=== PATIENT | male | born 1985 | race African-American/Black ===

== ENCOUNTER 2017-11-12 17:11 | Emergency (ER) | payer SELFPAY ==
[~2017-11-12] VITALS: Ht 182.9 cm; Wt 79.4 kg
[2017-11-12 17:20] VITALS: BP 121/75
--- NOTE | 2017-11-12 17:34 | PHYS DOC ---
Adult General Chief Complaint Chief Complaint: INSECT BITE HPI HPI 31-year-old male presents to ER with complaints of being stung by a wasp around 1 PM today. Patient states he was stung on the top of the head and then brushed the wasp away and was stung on the lt eye lid. Pt reports he did drink a tsp of children's benedryl at home as he had some arm itching after wasp sting. He denies having any shortness of air, wheezing, throat pain or swelling, or difficulty swallowing. Patient reports he went to [facility] and because of his left eyelid being so swollen was sent to the ER for further evaluation. Patient denies any vision changes or blurred vision. Patient reports he does have difficulty opening his left eye due to swelling to the eyelid. Patient denies eye pain or headache. Pt reports following Benadryl he no longer has bilateral arm itching is that symptom has subsided. Review of Systems Review of Systems Constitutional: Denies fever or chills [] Eyes: Denies change in visual acuity, redness, or eye pain [] HENT: Denies nasal congestion or sore throat [] Respiratory: Denies cough or shortness of breath [] Cardiovascular: No additional information not addressed in HPI [] GI: Denies abdominal pain, nausea, vomiting, bloody stools or diarrhea [] : Denies dysuria or hematuria [] Musculoskeletal: Denies back pain or joint pain [] Integument: Denies rash or skin lesions [] Neurologic: Denies headache, focal weakness or sensory changes [] Endocrine: Denies polyuria or polydipsia [] All other systems were reviewed and found to be within normal limits, except as documented in this note. Current Medications Current Medications Current Medications Medications (Trade) Dose Ordered Sig/Michael Start Time Stop Time Status Last Admin Dose Admin Dexamethasone Sodium Phosphate (Decadron) 10 mg 1X ONCE 11/12/17 17:45 11/12/17 18:00 DC 11/12/17 18:10 10 MG Famotidine (Pepcid) 40 mg 1X ONCE 11/12/17 17:45 11/12/17 18:00 DC 11/12/17 18:10 40 MG Allergies Allergies Allergies Coded Allergies Type Severity Reaction Last Updated Verified No Known Drug Allergies 11/12/17 No Physical Exam Physical Exam Constitutional: Well developed, well nourished, no acute distress, non-toxic appearance. [] HENT: Normocephalic, atraumatic, bilateral external ears normal, oropharynx moist, no oral exudates, nose normal. [] Eyes: PERRLA, EOMI, conjunctiva normal, no discharge. [] Neck: Normal range of motion, no tenderness, supple, no stridor. [] Cardiovascular:Heart rate regular rhythm, no murmur [] Lungs & Thorax: Bilateral breath sounds clear to auscultation [] Abdomen: Bowel sounds normal, soft, no tenderness, no masses, no pulsatile masses. [] Skin: Warm, dry, no erythema, no rash. [] Back: No tenderness, no CVA tenderness. [] Extremities: No tenderness, no cyanosis, no clubbing, ROM intact, no edema. [] Neurologic: Alert and oriented X 3, normal motor function, normal sensory function, no focal deficits noted. [] Psychologic: Affect normal, judgement normal, mood normal. [] Current Patient Data Vital Signs Vital Signs Date Time Temp Pulse Resp B/P (MAP) Pulse Ox O2 Delivery O2 Flow Rate FiO2 11/12/17 17:20 98.2 84 18 121/75 (90) 98 Room Air 98.2 EKG EKG [] Radiology/Procedures Radiology/Procedures [] Course & Med Decision Making Course & Med Decision Making Pertinent Labs and Imaging studies reviewed. (See chart for details) [] Dragon Disclaimer Dragon Disclaimer This electronic medical record was generated, in whole or in part, using a voice recognition dictation system. Departure Departure Impression: Primary Impression: Wasp sting Disposition: 01 HOME, SELF-CARE Condition: STABLE Patient Instructions: Bee, Wasp, or Hornet Sting Additional Instructions: As discussed you should have benedryl at home in case of future wasp stings. You were given a dose of decadron and pepcid while in the Emergency Department. If your symptoms worsen or you have any shortness of breath, wheezing, or throat swelling return immediately to Emergency Department. TAVON BAXTER APRN Nov 12, 2017 17:34
[2017-11-12] MEDS ORDERED: DEXAMETHASONE SOD PHOS 20 MG/5 ML VIAL. PO ONE (17:45)
[2017-11-12] MEDS ORDERED: FAMOTIDINE 20 MG TABLET. PO ONE (17:45)
== END 2017-11-12 18:26 | disposition home or self-care (01) ==
LOC: ER 17:11
DX: T63.461A Toxic effect of venom of wasps, accidental (unintentional), initial encounter (principal); Y92.89 Other specified places as the place of occurrence of the external cause
CPT/HCPCS: 99283; J1100